=== PATIENT | male | born 1985 | race Caucasian/White ===

== ENCOUNTER → 2024-06-20 | Outpatient (CLI) | payer SELFPAY ==
[2024-06-20 08:02] LABS: HEMATOCRIT 42.2 % (42.0-52.0); HEMOGLOBIN 14.6 g/dL (13.5-18.0); MEAN PLATELET VOLUME 9.5 fl (7.4-10.4); RED BLOOD COUNT 4.69 M/mm3 (4.20-5.60); RED CELL DISTRIBUTION WIDTH 12.1 % (11.5-14.5); WHITE BLOOD COUNT 6.9 K/mm3 (4.8-10.8)
[2024-06-20 08:09] LABS: ALBUMIN 4.4 g/dL (3.5-5.0)
[2024-06-20 08:10] LABS: CALCIUM 9.1 mg/dL (8.3-10.5)
[2024-06-20 08:12] LABS: TOTAL PROTEIN 7.3 g/dL (6.4-8.3)
[2024-06-20 08:13] LABS: TOTAL BILIRUBIN 0.6 mg/dL (0.2-1.2)
== END ==
LOC: LAB 07:37
PROVIDERS: Physician Assistant
DX: E78.5 Hyperlipidemia, unspecified (principal); K90.9 Intestinal malabsorption, unspecified; R53.83 Other fatigue; Z83.3 Family history of diabetes mellitus